=== PATIENT | female | born 1975 | race Caucasian/White ===

== ENCOUNTER 2025-07-20 03:24 | Emergency (ER) | payer BC ==
[2025-07-20] MEDS ORDERED: Sodium Chloride 0.9% 10 ML Syringe FLUSH PRN (03:45)
[2025-07-20] MEDS ORDERED: Naloxone 0.4 MG/ML SDV IVPUSH PRN (03:45)
[2025-07-20 03:59] LABS: BASOPHILS ABSOLUTE AUTO 0.0 x10-3/uL (0.0-0.1); BASOPHILS PERCENT AUTO 0.4 % (0.2-1.5); EOSINOPHILS ABSOLUTE AUTO 0.1 x10-3/uL (0.0-0.8); EOSINOPHILS PERCENT AUTO 0.6 % (0.6-8.1); LYMPHOCYTES ABSOLUTE AUTO 3.1 x10-3/uL (1.0-4.4); LYMPHOCYTES PERCENT AUTO 27.4 % (18.4-52.1); MEAN PLATELET VOLUME 8.6 fL (7.1-12.4); MONOCYTES ABSOLUTE AUTO 0.8 x10-3/uL (0.3-1.0); MONOCYTES PERCENT AUTO 7.0 % (4.4-15.7); NEUTROPHILS ABSOLUTE AUTO 7.3 x10-3/uL (1.5-6.3); NEUTROPHILS PERCENT AUTO 64.6 % (30.8-76.2); PLATELET COUNT,PLT 342 x10(3)uL (151-488); RED BLOOD CELL COUNT 4.59 x10(6)uL (3.60-5.20); RED CELL DISTRIBUTION WIDTH 14.5 % (12.3-16.5); WHITE BLOOD CELL COUNT,WBC 11.2 x10-3/uL (3.0-10.3)
[2025-07-20] MEDS: Ketorolac 30 MG/ML SDV IVPUSH ONE (04:02)
[2025-07-20] MEDS: Ondansetron 4 MG/2 ML SDV IVPUSH ONE (04:02)
[2025-07-20 04:12] LABS: BLOOD UREA NITROGEN,BUN 13 mg/dL (7-18); CARBON DIOXIDE,CO2 26 mmol/L (21-32); CHLORIDE,CL 101 mmol/L (100-110); CREATININE 0.6 mg/dL (0.55-1.02); EST CRCL DRUG DOSING (CG) 79.68 mL/min; ESTIMATED GFR 109 mL/min (>60); GLUCOSE RANDOM 161 mg/dL (80-116); POTASSIUM,K 3.8 mmol/L (3.5-5.3); SODIUM,NA 139 mmol/L (135-145)
[2025-07-20 04:23] LABS: A/G RATIO 0.8; ALANINE AMINOTRANSFERASE,ALT 48 U/L (12-36); ASPARTATE AMNIOTRANSFERASE,AST 36 IU/L (5-25); BILIRUBIN TOTAL 0.4 mg/dL (0.1-1.3); PROTEIN TOTAL,TP 7.4 g/dL (6.0-8.0)
[2025-07-20] MEDS: Iopamidol 755 Mg/ML 100 ML Bottle IV SCH (04:52)
[2025-07-20 05:33] LABS: GLUCOSE,URINE NORMAL (NORMAL); OCCULT BLOOD,URINE NEGATIVE (NEGATIVE)
[2025-07-20 05:47] LABS: APPEARANCE,URINE CLEAR (CLEAR)
== END 2025-07-20 06:20 | disposition home or self-care (01) ==
LOC: FB.ED 03:24 → SUPCPDRO 03:24 → FB.ED 06:20
DX: N85.8 Other specified noninflammatory disorders of uterus (principal); E86.0 Dehydration; E66.9 Obesity, unspecified; Z68.34 Body mass index [BMI] 34.0-34.9, adult
CPT/HCPCS: 74177; 80053; 81003; 83690; 85025; 96361; 96374; 96375; 99284; J1885; J2270; J2405; J7030; Q9967